=== PATIENT | female | born 1965 | race Caucasian/White ===

== ENCOUNTER 2019-09-11 06:47 | Inpatient (IN) | payer OTHER, MEDICARE ==
[2019-09-07 10:38] LABS: BASOPHILS % (AUTO) 0.3 % (0-1); EOSINOPHILS # (AUTO) 0.1 X10'3 (0-0.9); EOSINOPHILS % (AUTO) 1.1 % (0-6); LYMPHOCYTES # (AUTO) 1.9 X10'3 (1.1-4.8); LYMPHOCYTES % (AUTO) 24.6 % (21-51); MEAN CORPUSCULAR HEMOGLOBIN 31.9 PG (27.0-31.0); MEAN CORPUSCULAR HGB CONC 34.5 g/dL (33.0-36.5); MEAN CORPUSCULAR VOLUME 92.5 FL (78-98); MEAN PLATELET VOLUME 6.8 FL (7.4-10.4); MONOCYTES # (AUTO) 0.3 X10'3 (0-0.9); MONOCYTES % (AUTO) 3.2 % (2-12); NEUTROPHILS # (AUTO) 5.6 X10'3 (1.8-7.7); NEUTROPHILS % (AUTO) 70.8 % (42-75); PRE OP HEMATOCRIT 36.8 % (35.0-45.0); PRE OP HEMOGLOBIN 12.7 g/dL (12.0-16.0); PRE OP PLATELET COUNT 338 X10'3 (140-440); RED BLOOD COUNT 3.98 X10'6 (4.20-5.60); RED CELL DISTRIBUTION WIDTH 12.6 % (11.5-14.5)
[2019-09-07 11:05] LABS: ALBUMIN 3.8 G/DL (3.4-5.0); ALKALINE PHOSPHATASE 160 IU/L (46-116); BLOOD UREA NITROGEN 7 MG/DL (7-18); BUN/CREATININE RATIO 8.9 (6.6-38.0); CALCIUM 8.9 MG/DL (8.5-10.1); CHLORIDE 96 MMOL/L (99-107); CREATININE 0.79 MG/DL (0.40-0.90); PRE OP ALT 30 U/L (30-65); PRE OP ANION GAP 12 (8-16); PRE OP AST 22 U/L (10-37); PRE OP BILIRUB, TOTAL 0.3 MG/DL (0.0-1.0); PRE OP GLUCOSE 124 MG/DL (70-104); PRE OP POTASSIUM 3.8 MMOL/L (3.4-5.1); PRE OP SODIUM 133 MMOL/L (135-145); TOTAL CARBON DIOXIDE 25.3 MMOL/L (24-32); TOTAL PROTEIN 7.6 G/DL (6.4-8.2); eGFR 76 ML/MIN
[~2019-09-11] VITALS: Ht 157.5 cm; Wt 73.5 kg
[2019-09-11] VITALS (15 sets, daily range): BP systolic 101–132; BP diastolic 48–80
[~2019-09-11 06:47] MED LIST: AMPH30CA3 PO; ATI1T PO; ATOR40TA72 PO; ESTR1TAB28 PO; LAMO200T10 PO; LEVO50TA8 PO; LINA145C PO; MULT-1085 PO; OMEP-50 PO; PALI9TAB4 PO; PERP8TAB6 PO; PROG100C11 PO; VORT20TA PO; cefazolin/dext.iso 2gm/100ml 100 ML IV ONE; famotidine 20mg tablet PO ONE; ringers solution, lacted 1,000 ML IV SCH; tranexamic acid inj. 730 MG in normal saline 100ml IV soln 100 ML IV ONE; vancomycin inj 1,500 MG in normal saline 300ml IV soln IV ONE
[2019-09-11] MEDS ORDERED: ketorolac trometh. 30mg/ml inj. ONE (08:57)
[2019-09-11] MEDS ORDERED: ROPIVAcaine 0.5% (5mg/ml) 30ml vial ONE ×2 (08:58→10:02)
[2019-09-11] MEDS ORDERED: MIDAZolam 5mg/5ml vial ONE (09:59)
[2019-09-11] MEDS ORDERED: fentaNYL/PF 50MCG/1 ML 2ML syringe ONE (09:59)
[2019-09-11] MEDS ORDERED: sevoflurane 250ml liquid IH ONE (10:00)
[2019-09-11] MEDS ORDERED: propofol inj 20 ML IV ONE (11:16)
[2019-09-11] MEDS ORDERED: ringers solution, lacted 1,000 ML IV SCH (11:17)
[2019-09-11] MEDS ORDERED: morphine 4 MG/ML inj SYRINge IV PRN ×2 (11:20)
[2019-09-11] MEDS ORDERED: meperidine/PF 25mg/ml syringe IV PRN ×3 (11:20)
[2019-09-11] MEDS ORDERED: ROPIVAcaine 0.2% (10 MG/5 ML) BOLUS INJECTION INTERSCALE PRN (11:20)
[2019-09-11] MEDS ORDERED: ondansetron/PF 4mg/2ml inj IV PRN ×2 (11:20→12:25)
[2019-09-11] MEDS ORDERED: proCHLORperazine 10 MG/2 ml inj IV PRN (11:20)
--- NOTE | 2019-09-11 12:12 | NUR ---
Received from OR via , accompanied by Anesthesiologist DR SALCEDO and report given by Anesthesiolgist. AWAKENS TO VOICE. VITALS STABLE. DRESSING DI. BRYANNA PAIN. FINGERS WARM AND PINK. SILPLE TO LUE.
[2019-09-11] MEDS: ROPIVAcaine 0.2%/PF PUMP/bolus 550 ML INTERSCALE SCH (12:20)
[2019-09-11] MEDS ORDERED: magnesium hydroxide 30ml (MOM) UD suspension PO PRN (12:25)
[2019-09-11] MEDS ORDERED: acetaminophen 325mg tablet PO PRN (12:25)
[2019-09-11] MEDS ORDERED: oxyCODONE IR 5mg (immed. release) tablet PO PRN ×2 (12:25)
[2019-09-11] MEDS ORDERED: HYDROmorphone 1 mg/ml syringe IV PRN (12:25)
[2019-09-11] MEDS ORDERED: HYDROmorphone inj. 0.5 MG/0.5 ML DISP.SYRIN IV PRN (12:25)
[2019-09-11] MEDS ORDERED: bisacodyl 10mg suppository rectal RC PRN (12:25)
[2019-09-11] MEDS ORDERED: diphenhydrAMINE 25mg capsule PO PRN ×2 (12:25)
--- NOTE | 2019-09-11 13:02 | NUR ---
Report called to receiving nurse. Transferred via BED Belongings . Special Issues communicated to receiving nurse. AWAKE AND ORIENTED. VITALS STABLE. DRESSING DI. BRYANNA PAIN. TO ORTHO RM [id number] AT THIS TIME.
--- NOTE | 2019-09-11 13:05 | NUR ---
Patient in room ORTHO 4014. I have received report from Josr ORTIZ and had the opportunity to ask questions and assume patient care.
[2019-09-11] MEDS: potassium cl 20mEq in 1/2 NS 1,000 ML IV SCH ×2 (13:43→23:27)
[2019-09-11] MEDS: acetaminophen 325mg tablet PO SCH ×2 (13:57→20:28)
[2019-09-11] MEDS: lamoTRIgine 100mg tablet PO SCH ×2 (14:08→20:28)
[2019-09-11] MEDS ORDERED: tranexamic acid inj. 740 MG in normal saline 100ml IV soln 100 ML IV ONE (16:00)
--- NOTE | 2019-09-11 18:25 | NUR ---
Problems reprioritized. Patient report given, questions answered & plan of care reviewed with Yojana ORTIZ.
--- NOTE | 2019-09-11 18:27 | NUR ---
Patient in room ORTHO 4014. I have received report from Nestor ORTIZ and had the opportunity to ask questions and assume patient care.
[2019-09-11] MEDS: ceFAZolin/D5W- 1GM premix 50 ML IV SCH (18:51)
[2019-09-11] MEDS ORDERED: vancomycin/NS 1 GM ADD-VANTAGE 250 ML IV SCH (20:00)
[2019-09-11] MEDS ORDERED: dextroamphetam/amphetam ER cap 15 MG CAP.ER.24H PO SCH ×2 (20:00→20:30)
[2019-09-11] MEDS: perphenazine 8mg tablets PO SCH (20:27)
[2019-09-11] MEDS: LORazepam 1 MG tablet PO PRN (20:36)
[2019-09-11] MEDS ORDERED: atorvastatin 20mg tablet PO SCH (21:00)
[2019-09-11] MEDS ORDERED: sennosides 8.6mg tablet PO SCH (21:00)
[2019-09-12] MEDS: ceFAZolin/D5W- 1GM premix 50 ML IV SCH (01:18)
[2019-09-12] MEDS: acetaminophen 325mg tablet PO SCH ×2 (01:18→08:28)
[2019-09-12 02:00] VITALS: BP 108/74
[2019-09-12 05:20] LABS: BASOPHILS % (AUTO) 0.2 % (0-1); EOSINOPHILS % (AUTO) 0.1 % (0-6); HEMATOCRIT 30.9 % (35.0-45.0); HEMOGLOBIN 10.6 g/dl (12.0-16.0); LYMPHOCYTES # (AUTO) 1.7 X10'3 (1.1-4.8); LYMPHOCYTES % (AUTO) 16.1 % (21-51); MEAN CORPUSCULAR HEMOGLOBIN 31.8 PG (27.0-31.0); MEAN CORPUSCULAR HGB CONC 34.2 g/dL (33.0-36.5); MEAN CORPUSCULAR VOLUME 93.1 FL (78-98); MEAN PLATELET VOLUME 7.1 FL (7.4-10.4); MONOCYTES # (AUTO) 0.5 X10'3 (0-0.9); MONOCYTES % (AUTO) 4.8 % (2-12); NEUTROPHILS # (AUTO) 8.1 X10'3 (1.8-7.7); NEUTROPHILS % (AUTO) 78.8 % (42-75); PLATELET COUNT 275 X10'3 (140-440); RED BLOOD COUNT 3.32 X10'6 (4.20-5.60); RED CELL DISTRIBUTION WIDTH 12.8 % (11.5-14.5); WHITE BLOOD COUNT 10.3 X10'3 (4.5-11.0)
[2019-09-12 05:28] LABS: ANION GAP 12 (8-16); CHLORIDE 102 MMOL/L (99-107); SODIUM 136 MMOL/L (135-145); TOTAL CARBON DIOXIDE 21.7 MMOL/L (24-32)
[2019-09-12 06:00] VITALS: BP 109/67
--- NOTE | 2019-09-12 06:38 | NUR ---
Patient in room ORTHO 4014. I have received report from Yojana ORTIZ and had the opportunity to ask questions and assume patient care.
--- NOTE | 2019-09-12 06:40 | NUR ---
Problems reprioritized. Patient report given, questions answered & plan of care reviewed with Nestor ORTIZ.
[2019-09-12] MEDS ORDERED: levoTHYROXINE 25mcg tablet PO SCH (07:00)
[2019-09-12] MEDS ORDERED: pantoprazole 40mg Tablet.DR PO SCH (07:30)
[2019-09-12] MEDS ORDERED: voritoxetine HBr tablet 10 MG TABLET PO SCH (08:00)
[2019-09-12] MEDS ORDERED: LINACLOTIDE PO SCH (08:00)
[2019-09-12] MEDS ORDERED: estradiol 1mg tablet PO SCH (08:00)
[2019-09-12] MEDS ORDERED: multivitamins, therapeutics tablet PO SCH (08:00)
[2019-09-12] MEDS ORDERED: PALIPERIDONE 3 MG TAB.ER.24 PO SCH (08:00)
[2019-09-12] MEDS: perphenazine 8mg tablets PO SCH (08:26)
[2019-09-12] MEDS: lamoTRIgine 100mg tablet PO SCH (08:27)
[2019-09-12] MEDS ORDERED: aspirin 325mg tablet PO SCH (08:30)
[2019-09-12] MEDS: LORazepam 1 MG tablet PO PRN ×2 (08:33→08:34)
[2019-09-12] MEDS: potassium cl 20mEq in 1/2 NS 1,000 ML IV SCH ×2 (08:34→12:24)
[2019-09-12] MEDS: ROPIVAcaine 0.2%/PF PUMP/bolus 550 ML INTERSCALE SCH (09:32)
--- NOTE | 2019-09-12 09:32 | NUR ---
Pt starting to have L shoulder pain. Encouraged use of bolus button and adjusted rate to 4ml/hr per protocol for ON Q pump.
[2019-09-12 10:00] VITALS: BP 109/70
--- NOTE | 2019-09-12 13:00 | NUR ---
safe discharge with spouse in personal vehicle.
[2019-09-12] MEDS ORDERED: progesterone, micronized 100mg capsule PO SCH (21:00)
[2019-09-13] MEDS ORDERED: acetaminophen 325mg tablet PO PRN (12:25)
== END 2019-09-12 13:00 | disposition home or self-care (01) | DRG 483 ==
LOC: PAS IN 06:47 → EDSTATUS 09:15 → ORTHO 4S 13:34
PROVIDERS: ADMIT Orthopaedic Surgery; ATTEND Orthopaedic Surgery
PROC: 0RRK00Z Replacement of Left Shoulder Joint with Reverse Ball and Socket Synthetic Substitute, Open Approach (ICD-10-PCS; principal; 2019-09-11 10:00)
DX: M75.122 Complete rotator cuff tear or rupture of left shoulder, not specified as traumatic (principal); M19.012 Primary osteoarthritis, left shoulder; M65.9 Synovitis and tenosynovitis, unspecified
CPT/HCPCS: Z7506; Z7508; 36415; 80051; 80053; 82948; 85025; 87081; 97110; 97116; 97162; 97530; A4215; A4565; A4618; A7000; C1776; G0378; J0690; J1885; J2250; J2704; J2795; J3010; J3370; J3480; J7120